=== PATIENT | female | born 1935 | race Two or more races ===

== ENCOUNTER 2023-01-30 14:13 | Inpatient (IN) | payer OTHER ==
[~2023-01-30] VITALS: Ht 154.9 cm; Wt 59.0 kg
[2023-01-30] MEDS ORDERED: PANTOPRAZOLE SO40 MG PO (15:40)
[2023-01-30] MEDS ORDERED: LOSARTAN POTASS50 MG PO (15:41)
[2023-01-30] MEDS ORDERED: METOCLOPRAMIDE10 MG PO (15:41)
[2023-01-30] MEDS ORDERED: AMLODIPINE BESYL5 MG PO (15:41)
[2023-01-30] MEDS ORDERED: JANUMET 50-5001 EACH (15:41)
[2023-01-30] MEDS ORDERED: HYDROCHLOROTHIA25 MG PO (15:41)
[2023-01-30] MEDS ORDERED: MONTELUKAST SOD10 MG PO (15:43)
[2023-01-30 17:34] LABS: HEMATOCRIT 36.2 % (36.0-45.00); HEMOGLOBIN 11.4 g/dL (12.0-15.00); MEAN CORPUSCULAR HEMOGLOBIN 20.4 pg (27.00-32.0); MEAN CORPUSCULAR HGB CONC 31.5 g/dl (32.0-36.0); PLATELET COUNT 337 K/uL (150-450); RED BLOOD COUNT 5.59 M/uL (4.00-6.00); RED CELL DISTRIBUTION WIDTH 19.3 % (11.5-14.5)
[2023-01-30 17:35] LABS: MEAN CELL VOLUME 64.7 fL (80.00-100.00)
[2023-01-30 17:57] LABS: ALBUMIN 3.8 gm/dL (3.4-5.0); BILIRUBIN TOTAL 0.49 mg/dL (0.3-1.2); BILIRUBIN,CONJUGATED 0.19 mg/dL (0.0-0.2); BILIRUBIN,UNCONJUGATED 0.3 mg/dL (0.0-0.6); CALCIUM 9.6 mg/dL (8.5-10.1); CREATININE SERUM 0.57 mg/dL (0.55-1.02); GFR 100.57; GLOBULINA 3.8 G/DL (2.4-3.5); TOTAL PROTEIN 7.6 gm/dL (6.4-8.2)
[2023-01-30 18:06] LABS: POTASSIUM 2.9 mEq/L (3.5-5.1)
[2023-01-30 19:27] LABS: INR 1.11; PARTIAL THROMBOPLASTIN TIME 29.9 SECONDS (22.0-34.0); PROTHROMBIN TIME 11.6 SECONDS (9.0-11.5)
[2023-01-30 21:59] LABS: PH,URINE 6.5 (5.0-8.0); URINE APPEARANCE Clear; URINE BACTERIA 9.6 uL (0.0-1933); URINE BILIRRUBIN Negative (NEGATIVE); URINE BLOOD Negative; URINE COLOR Yellow; URINE EPITHELIAL CELLS 4.5 uL (0.0-38.8); URINE GLUCOSE Negative (NEGATIVE); URINE LEUKOCYTE Negative; URINE NITRATE Negative; URINE PROTEIN Negative (NEGATIVE); URINE RBC 2.5 uL (0.0-20.8); URINE UROBILINOGEN 0.2 E.U./dl; URINE WBC 7.2 uL (0.0-23.2)
[2023-01-31 12:28] LABS: CALCIUM 8.6 mg/dL (8.5-10.1); CHOL HDL RATIO 3.8 (0-5.0); CREATININE SERUM 0.39 mg/dL (0.55-1.02); GFR 155.83; POTASSIUM 3.1 mEq/L (3.5-5.1)
[2023-02-03 07:10] LABS: HEMATOCRIT 33.8 % (36.0-45.00); HEMOGLOBIN 10.5 g/dL (12.0-15.00); MEAN CORPUSCULAR HEMOGLOBIN 20.3 pg (27.00-32.0); MEAN CORPUSCULAR HGB CONC 31.2 g/dl (32.0-36.0); PLATELET COUNT 237 K/uL (150-450); RED BLOOD COUNT 5.19 M/uL (4.00-6.00); RED CELL DISTRIBUTION WIDTH 19.9 % (11.5-14.5)
[2023-02-03 07:18] LABS: MEAN CELL VOLUME 65.1 fL (80.00-100.00)
[2023-02-03 08:06] LABS: ALBUMIN 2.9 gm/dL (3.4-5.0); BILIRUBIN TOTAL 0.26 mg/dL (0.3-1.2); CALCIUM 8.4 mg/dL (8.5-10.1); GFR 219.34; GLOBULINA 2.7 G/DL (2.4-3.5); POTASSIUM 3.97 mEq/L (3.5-5.1); TOTAL PROTEIN 5.6 gm/dL (6.4-8.2)
[2023-02-03 08:08] LABS: CREATININE SERUM 0.29 mg/dL (0.55-1.02)
[2023-02-06 07:02] LABS: HEMATOCRIT 33.5 % (36.0-45.00); HEMOGLOBIN 10.7 g/dL (12.0-15.00); MEAN CORPUSCULAR HEMOGLOBIN 20.8 pg (27.00-32.0); MEAN CORPUSCULAR HGB CONC 31.8 g/dl (32.0-36.0); PLATELET COUNT 179 K/uL (150-450); RED BLOOD COUNT 5.13 M/uL (4.00-6.00); RED CELL DISTRIBUTION WIDTH 20.9 % (11.5-14.5)
[2023-02-06 07:08] LABS: MEAN CELL VOLUME 65.4 fL (80.00-100.00)
[2023-02-06 07:31] LABS: CALCIUM 9.1 mg/dL (8.5-10.1); CREATININE SERUM 0.32 mg/dL (0.55-1.02); GFR 195.33; POTASSIUM 4.11 mEq/L (3.5-5.1)
[2023-02-07 11:22] LABS: HEMATOCRIT 35.2 % (36.0-45.00); HEMOGLOBIN 11.1 g/dL (12.0-15.00); MEAN CORPUSCULAR HEMOGLOBIN 20.8 pg (27.00-32.0); MEAN CORPUSCULAR HGB CONC 31.4 g/dl (32.0-36.0); PLATELET COUNT 176 K/uL (150-450); RED BLOOD COUNT 5.31 M/uL (4.00-6.00); RED CELL DISTRIBUTION WIDTH 20.7 % (11.5-14.5)
[2023-02-07 11:23] LABS: MEAN CELL VOLUME 66.3 fL (80.00-100.00)
[2023-02-07 11:58] LABS: ALBUMIN 3.1 gm/dL (3.4-5.0); BILIRUBIN TOTAL 0.32 mg/dL (0.3-1.2); CALCIUM 8.9 mg/dL (8.5-10.1); CREATININE SERUM 0.38 mg/dL (0.55-1.02); GFR 160.2; GLOBULINA 2.8 G/DL (2.4-3.5); POTASSIUM 3.91 mEq/L (3.5-5.1); TOTAL PROTEIN 5.9 gm/dL (6.4-8.2)
[2023-02-10 06:53] LABS: HEMATOCRIT 34.6 % (36.0-45.00); MEAN CORPUSCULAR HGB CONC 31.6 g/dl (32.0-36.0); PLATELET COUNT 166 K/uL (150-450); RED BLOOD COUNT 5.13 M/uL (4.00-6.00); RED CELL DISTRIBUTION WIDTH 21.3 % (11.5-14.5)
[2023-02-10 07:03] LABS: HEMOGLOBIN 10.9 g/dL (12.0-15.00); MEAN CELL VOLUME 67.4 fL (80.00-100.00); MEAN CORPUSCULAR HEMOGLOBIN 21.2 pg (27.00-32.0)
[2023-02-10 07:24] LABS: ALBUMIN 3.1 gm/dL (3.4-5.0); BILIRUBIN TOTAL 0.47 mg/dL (0.3-1.2); BILIRUBIN,CONJUGATED 0.18 mg/dL (0.0-0.2); BILIRUBIN,UNCONJUGATED 0.29 mg/dL (0.0-0.6); CHOL HDL RATIO 4.4 (0-5.0); CREATININE SERUM 0.39 mg/dL (0.55-1.02); GFR 155.46; INR 1.12; MAGNESIUM 2.3 mg/dL (1.8-2.4); PARTIAL THROMBOPLASTIN TIME 29.9 SECONDS (22.0-34.0); POTASSIUM 4.03 mEq/L (3.5-5.1); PROTHROMBIN TIME 11.7 SECONDS (9.0-11.5); TOTAL PROTEIN 6.1 gm/dL (6.4-8.2)
[2023-02-10 10:05] LABS: UREA CLEARANCE 15.6 ML/MIN
[2023-02-11] MEDS ORDERED: LOSARTAN POTASS50 MG PO (12:54)
[2023-02-11] MEDS ORDERED: PREVACID15 M1 PO (12:59)
== END 2023-02-11 15:25 | disposition home or self-care (01) | DRG 392 ==
LOC: ER 14:13 → SEC-K 18:57 → SURG 01-31 01:39
PROVIDERS: General Practice; ADMIT Internal Medicine; ATTEND Internal Medicine
PROC: BW21ZZZ Computerized Tomography (CT Scan) of Abdomen and Pelvis (ICD-10-PCS; principal; 2023-01-30)
PROC: 3E0F7SF Introduction of Other Gas into Respiratory Tract, Via Natural or Artificial Opening (ICD-10-PCS; 2023-01-30)
PROC: 02HV33Z Insertion of Infusion Device into Superior Vena Cava, Percutaneous Approach (ICD-10-PCS; 2023-01-31)
PROC: 3E0436Z Introduction of Nutritional Substance into Central Vein, Percutaneous Approach (ICD-10-PCS; 2023-01-31)
PROC: 3E0F7GC Introduction of Other Therapeutic Substance into Respiratory Tract, Via Natural or Artificial Opening (ICD-10-PCS; 2023-01-31)
PROC: BB24YZZ Computerized Tomography (CT Scan) of Bilateral Lungs using Other Contrast (ICD-10-PCS; 2023-02-01)
PROC: BD11YZZ Fluoroscopy of Esophagus using Other Contrast (ICD-10-PCS; 2023-02-06)
DX: K44.9 Diaphragmatic hernia without obstruction or gangrene (principal); K31.1 Adult hypertrophic pyloric stenosis; K21.9 Gastro-esophageal reflux disease without esophagitis; K22.0 Achalasia of cardia; D49.0 Neoplasm of unspecified behavior of digestive system; K29.00 Acute gastritis without bleeding; E86.0 Dehydration; E87.6 Hypokalemia; E11.9 Type 2 diabetes mellitus without complications; D50.8 Other iron deficiency anemias; J44.9 Chronic obstructive pulmonary disease, unspecified; I10 Essential (primary) hypertension; F43.29 Adjustment disorder with other symptoms